=== PATIENT | male | born 1990 | race Caucasian/White ===

== ENCOUNTER 2017-07-09 22:41 | Emergency (ER) | payer SELFPAY ==
[2017-07-09 22:52] VITALS: BP 122/84; PULSE 100; TEMP 98.2; BMI 24.3
[2017-07-09] MEDS ORDERED: ONDANSETRON 4 MG/2 ML VIAL IVPUSH ONE (23:23)
[2017-07-09] MEDS ORDERED: MAG HYDROX/AL HYDROX/SIMETH 30 ML UNIT-DOSE CUP PO ONE (23:23)
[2017-07-09] MEDS ORDERED: SODIUM CHLORIDE 1,000 ML IV STA (23:23)
--- NOTE | 2017-07-09 23:23 | PDOC ---
History of Present Illness - General Chief Complaint: Pain Stated Complaint: STOMACH/BACK PAIN Time Seen by Provider: 07/09/17 23:15 - History of Present Illness Initial Comments: 07/09/17 23:27 The patient is a 27 year old male with a history of IBS who presents for evaluation of abdominal pain. The patient reports worsening sharp epigastric abdominal pain over the past few days with associated intermittent constipation and diarrhea and nausea prompting his presentation to the ED for further evaluation. The patient states that drinking selzer water improves his symptoms , but otherwise denies fevers, chills, SOB, chest pain, vomiting, or changes with urination. Past History - Past Medical History Allergies/Adverse Reactions: Allergies Allergy/AdvReac Type Severity Reaction Status Date / Time No Known Allergies Allergy Verified 07/09/17 22:51 - Suicide/Smoking/Psychosocial Hx Smoking History: Never smoked Have you smoked in the past 12 months: No Hx Alcohol Use: No Drug/Substance Use Hx: No Review of Systems - Review of Systems Comments:: 07/09/17 23:31 Constitutional: No fevers, chills, fatigue, malaise HEENT: No Rhinorrhea, nasal congestion, visual changes Cardiovascular: No chest pain, syncope, palpitations, lightheadedness Respiratory: No Cough, SOB, Hemoptysis, Gastrointestinal: Abdominal pain, nausea, constipation, diarrhea. No Vomiting, Melena Genitourinary: No Dysuria, Frequency, Urgency, Hesitancy, Hematuria, Flank pain Musculoskeletal: No Myalgia, arthralgia Skin: No rashes, itching, bruising, pallor Neurologic: No Headache, Dizziness, Numbness, Weakness, or Tingling Psychiatric: No Hallucinations. No SI or HI *Physical Exam - Vital Signs Last Vital Signs Temp Pulse Resp BP Pulse Ox 98.2 F 100 H 16 122/84 98 07/09/17 22:50 07/09/17 22:50 07/09/17 22:50 07/09/17 22:50 07/09/17 22:50 - Physical Exam Comments: 07/09/17 23:31 General Appearance: Nourished. No Apparent Distress HEENT: EOMI, ISAAC. No Pharyngeal Erythema, Tonsillar Exudate, Tonsillar Erythema Neck: No Cervical Lymphadenopathy Respiratory/Chest: Lungs Clear, Normal Breath Sounds. No Crackles, Rales, Rhonchi, Wheezing Cardiovascular: Regular Rhythm, Regular Rate. No Murmur, Gallops, Rubs Gastrointestinal/Abdominal: Normal Bowel Sounds, Soft. Epigastric tenderness to palpation noted on exam. No Guarding, Rebound, Musculoskeletal: No CVA Tenderness Extremity: Normal Capillary Refill Integumentary: Normal Color, Dry, Warm Neurologic: Fully Oriented, Alert, Normal Mood/Affect, Normal Response, ED Treatment Course - LABORATORY CBC & Chemistry Diagram: 07/09/17 23:40 07/09/17 23:40 Medical Decision Making - Medical Decision Making 07/09/17 23:33 The patient is a 27 year old male with a history of IBS who presents for evaluation of abdominal pain. Differential includes but is not limited to: Gastritis, Pancreatitis, constipation, infectious, metabolic derangement. Given the patient's history and physical exam, we will obtain a cbc, cmp, lipase , ua to evaluate further and treat the patient here in the ED with iv fluids, zofran, pepcid, mylanta. We will continue to monitor and reassess in the meantime. 07/10/17 01:29 cbc, cmp, ua, lipase are unremarkable. The patient reports significant improvement in his symptoms. We are comfortable discharging the patient home at this time with primary care provider and gi follow up. We discussed the results, plan and return precautions with the patient who voiced understanding and is agreeable with the plan. *DC/Admit/Observation/Transfer Diagnosis at time of Disposition: Abdominal pain Qualifiers: Abdominal location: unspecified location Qualified Code(s): R10.9 - Unspecified abdominal pain - Discharge Dispostion Disposition: HOME Condition at time of disposition: Stable Decision to Admit order: No - Referrals Referrals: Odilon Patrick MD [Staff Physician] - - Patient Instructions Printed Discharge Instructions: DI for Abdominal Pain-Adult Additional Instructions: Please return to the ER if you experience concerning or worsening symptoms including worsening abdominal pain, vomiting or fevers. Your lab results were normal here in the ER. It is important that you call to schedule a follow up appointment with your primary care provider and our gi specialist within 2-3 days to discuss your ER visit and further management of your symptoms. - Post Discharge Activity
--- NOTE | 2017-07-09 23:29 | PDOC ---
Attending Attestation - Resident Resident Name: Carmelo Draper - ED Attending Attestation I have performed the following: I have examined & evaluated the patient, The case was reviewed & discussed with the resident, I agree w/resident's findings & plan, Exceptions are as noted - HPI HPI: 07/09/17 23:28 Mr Simmons is a 27 yo M who presents to the Er with a complaint of abdominal pain Pt has a h/o Irritable Bowel Syndrome He reports worsening sharp epigastric abdominal pain x 3 days. He has noted nausea. The patient states that drinking selzer water improves his symptoms. No fevers, chills, SOB, chest pain, vomiting He has had bouts of constipation and loose stools No recent travel No ill contacts Pt currently fasting - Physicial Exam PE: 07/10/17 00:36 GENERAL: The patient is in no acute distress. LUNGS: Breath sounds equal, clear to auscultation bilaterally. HEART:Regular rate and rhythm, normal S1 and S2 without murmur, rub or gallop. ABDOMEN: Soft, epigastric tenderness to palpation, no involuntary guarding or rebound. no lower abdominal tenderness EXTREMITIES: Normal range of motion, no edema. NEUROLOGICAL: Cranial nerves II through XII grossly intact. Normal speech. No focal neurological deficits. SKIN: Warm, Dry, normal turgor, no rashes or lesions noted. 07/12/17 14:41 - Medical Decision Making Pt presents to the ER with 3 days of epigastric pain Decreased po intake DD: gastritis, cholecystitis, biliary colic Will do: labs, meds, Re assess 07/10/17 00:35 Laboratory Tests 07/09/17 07/09/17 23:40 23:40 WBC 7.2 Hgb 16.7 Hct 48.7 Plt Count 117 L Neutrophils % 68.2 Lymphocytes % 18.5 Sodium 140 Potassium 4.1 Chloride 104 Carbon Dioxide 29 BUN 11 Creatinine 0.9 Random Glucose 86 Lipase 85 07/10/17 00:36 Pt symptoms improved with meds No elevation in bilirubin level No leukocytosis Will discharge to home Follow up with PMD Clinical impression: gastritis, initial presentation
[2017-07-09] MEDS ORDERED: FAMOTIDINE 20 MG/50 ML IVPB 20 MG/50 ML MG IVPB ONE ×2 (23:30→23:45)
[2017-07-09] MEDS ORDERED: MAG HYDROX/AL HYDROX/SIMETH 30 ML UNIT-DOSE CUP ONE (23:44)
[2017-07-09] MEDS ORDERED: ONDANSETRON 4 MG/2 ML VIAL ONE (23:45)
[2017-07-09 23:50] LABS: BASO % 0.5 % (0-2.0); EOS % 1.9 % (0-4.5); HEMATOCRIT 48.7 % (35.4-49); HEMOGLOBIN 16.7 GM/dL (11.7-16.9); LYMPH % 18.5 % (8-40); MCH 30.8 pg (25.7-33.7); MCHC 34.2 g/dl (32.0-35.9); MEAN CELL VOLUME 90.1 fl (80-96); MEAN PLT VOLUME 9.1 fl (7.5-11.1); MONO % 10.9 % (3.8-10.2); NEUT % 68.2 % (42.8-82.8); PLATELET COUNT 117 K/MM3 (134-434); RBC 5.41 M/mm3 (4.00-5.60); RDW 13.2 % (11.9-15.9); WHITE BLOOD COUNT 7.2 K/mm3 (4.0-10.0)
[2017-07-10 00:15] LABS: ALBUMIN 4.1 g/dl (3.4-5.0); ANION GAP 7 (8-16); BILIRUBIN,TOTAL 0.8 mg/dL (0.2-1.0); BLOOD UREA NITROGEN 11 mg/dL (7-18); CALCIUM 8.9 mg/dL (8.5-10.1); CHLORIDE 104 mmol/L (98-107); CO2 29 mmol/L (21-32); CREATININE 0.9 mg/dL (0.7-1.3); GLUCOSE,RANDOM 86 mg/dL (74-106); LIPASE 85 U/L (73-393); SGPT/ALT 29 U/L (12-78); SODIUM 140 mmol/L (136-145); TOT PROT 7.1 g/dl (6.4-8.2)
[2017-07-10 00:16] LABS: ALK PHOS 81 U/L (45-117); POTASSIUM 4.1 mmol/L (3.5-5.1); SGOT/AST 24 U/L (15-37)
[2017-07-10 01:14] LABS: URINE APPEARANCE CLEAR; URINE BILIRUBIN NEGATIVE (<2.0 mg/dL); URINE COLOR LTYELLOW; URINE GLUCOSE (UA) NEGATIVE (NEGATIVE); URINE KETONE NEGATIVE (NEGATIVE); URINE LEUK ESTERASE NEGATIVE (NEGATIVE); URINE NITRITE NEGATIVE (NEGATIVE); URINE PROTEIN NEGATIVE (NEGATIVE); URINE UROBILINOGEN NEGATIVE mg/dL (0.2-1.0)
== END 2017-07-10 01:42 | disposition home or self-care (01) ==
LOC: JER 22:41
PROC: 3E033GC Introduction of Other Therapeutic Substance into Peripheral Vein, Percutaneous Approach (ICD-10-PCS; principal; 2017-07-09)
PROC: 3E033GC Introduction of Other Therapeutic Substance into Peripheral Vein, Percutaneous Approach (ICD-10-PCS; 2017-07-09)
DX: R10.13 Epigastric pain (principal); Z87.19 Personal history of other diseases of the digestive system
CPT/HCPCS: 36415; 80053; 81003; 83690; 85025; 99281-25; J7030